=== PATIENT | male | born 1940 | race Caucasian/White ===

== ENCOUNTER 2020-03-25 14:04 | Outpatient (CLI) | payer MEDICARE, OTHER, SELFPAY ==
[2020-03-25 14:34] LABS: Basophils Percent Auto 0.4 % (0.2-1.2); Eosinophils Absolute Auto 0.4 K/mm3 (0-0.3); Eosinophils Percent Auto 4.9 % (0-4.4); Hematocrit 42.7 % (42.0-52.0); Hemoglobin 13.7 g/dL (14.0-18.0); Immature Granulocyte Absolute 0.02 K/mm3 (0.00-0.031); Immature Granulocyte Percent A 0.2 % (0-0.5); Lymphocytes Percent Auto 33.7 % (18.3-44.2); Mean Corpuscular HGB Conc 32.1 g/dl (32-36); Mean Corpuscular Hemoglobin 29.5 pg (26-34); Mean Corpuscular Volume 91.8 fl (80-100); Mean Platelet Volume 10.2 fl (7.4-10.4); Monocytes Absolute Auto 0.5 K/mm3 (0.1-0.6); Monocytes Percent Auto 6.6 % (2.6-8.5); Neutrophils Absolute Auto 4.4 K/mm3 (1.3-6.7); Neutrophils Percent Auto 54.2 % (45.5-73.1); Platelet Count Result 232 k/mm3 (150-375); Red Blood Count 4.65 M/mm3 (4.6-6.20); Red Cell Distribution Width 13.9 % (11.5-14.5)
[2020-03-25 14:45] LABS: Anion Gap 6 mmol/L (8-16); Blood Urea Nitrogen 19 mg/dL (9-20); Calcium 8.7 mg/dL (8.4-10.2); Carbon Dioxide 30 mmol/L (22-30); Chloride 107 mmol/L (98-107); Estimated Glomerular Filt Rate > 60; Glucose 158 mg/dL (75-110); Potassium 4.2 mmol/L (3.4-5.0); Sodium 143 mmol/L (137-145)
== END 2020-03-25 14:05 | disposition home or self-care (01) ==
PROVIDERS: PCP Family Medicine; Visit Provider Internal Medicine Cardiovascular Disease
DX: I48.91 Unspecified atrial fibrillation (principal)
CPT/HCPCS: 36415; 80048; 85025

== ENCOUNTER 2020-09-26 11:53 | Outpatient (CLI) | payer MEDICARE, OTHER, SELFPAY ==
[2020-09-26 12:52] LABS: Alanine Aminotransferase 20 U/L (4-50); Albumin Level 4.5 g/dL (3.5-5.1); Alkaline Phosphatase 97 U/L (38-126); Anion Gap 5 mmol/L (8-16); Aspartate Amino Transferase 24 U/L (17-59); Bilirubin,Total 0.6 mg/dL (0.2-1.3); Blood Urea Nitrogen 16 mg/dL (9-20); Calcium 9.2 mg/dL (8.4-10.2); Carbon Dioxide 32 mmol/L (22-30); Chloride 104 mmol/L (98-107); Cholesterol 156 mg/dL (0-200); Estimated Glomerular Filt Rate > 60; Glucose 140 mg/dL (75-110); HDL Direct 45 mg/dL; Potassium 4.1 mmol/L (3.4-5.0); Sodium 141 mmol/L (137-145); Triglycerides 126 mg/dL (<150)
[2020-09-26 13:02] LABS: LDL Cholesterol Direct 90 mg/dL
[2020-09-26 13:18] LABS: Prostate Specific Antigen 18.7 ng/mL (< OR = 4.0)
[2020-09-26 13:59] LABS: Folic Acid > 20.0 ng/mL (2.76->20)
== END 2020-09-26 11:54 | disposition home or self-care (01) ==
LOC: ANHLAB 12:05
PROVIDERS: PCP Physician Assistant; Visit Provider Physician Assistant
DX: Z12.5 Encounter for screening for malignant neoplasm of prostate (principal); E78.5 Hyperlipidemia, unspecified; I48.91 Unspecified atrial fibrillation; Z00.00 Encounter for general adult medical examination without abnormal findings
CPT/HCPCS: 36415; 80053; 80061; 82607; 82746; 84153; 84443; G0103

== ENCOUNTER 2020-10-11 09:32 | Outpatient (CLI) | payer MEDICARE, SELFPAY ==
[2020-10-11 10:19] LABS: Hemoglobin A1C 5.8 % (<5.7)
== END 2020-10-11 09:33 | disposition home or self-care (01) ==
LOC: ANHLAB 09:38
PROVIDERS: PCP Physician Assistant; Referring Provider Urology; Visit Provider Physician Assistant
DX: R97.20 Elevated prostate specific antigen [PSA] (principal)
CPT/HCPCS: 36415; 83036

== ENCOUNTER 2021-03-20 09:27 | Outpatient (CLI) | payer MEDICARE, SELFPAY ==
[2021-03-20 10:20] LABS: INR 3.6; Prothrombin Time 34.5 Seconds (11.1-14.7)
[2021-03-20 10:25] LABS: Alanine Aminotransferase 19 U/L (4-50); Albumin Level 4.1 g/dL (3.5-5.1); Alkaline Phosphatase 86 U/L (38-126); Anion Gap 4 mmol/L (8-16); Aspartate Amino Transferase 23 U/L (17-59); Bilirubin,Total 0.6 mg/dL (0.2-1.3); Blood Urea Nitrogen 16 mg/dL (9-20); Calcium 8.9 mg/dL (8.4-10.2); Carbon Dioxide 31 mmol/L (22-30); Chloride 107 mmol/L (98-107); Cholesterol 153 mg/dL (0-200); Estimated Glomerular Filt Rate > 60; Glucose 95 mg/dL (65-110); HDL Direct 38 mg/dL; Potassium 4.2 mmol/L (3.4-5.0); Sodium 142 mmol/L (137-145); Triglycerides 185 mg/dL (<150)
[2021-03-20 10:36] LABS: LDL Cholesterol Direct 87 mg/dL
[2021-03-20 11:32] LABS: Creatinine Urine 198.3 mg/dL
[2021-03-20 11:38] LABS: MALB Creatinine Ratio 4.9 mg/g (0-30); Microalbumin Urine Random 9.7 mg/L (0-16.7)
== END 2021-03-20 09:28 | disposition home or self-care (01) ==
LOC: ANHLAB 09:33
PROVIDERS: PCP Family Medicine; Visit Provider Physician Assistant
DX: E11.9 Type 2 diabetes mellitus without complications (principal); I10 Essential (primary) hypertension; E78.5 Hyperlipidemia, unspecified
CPT/HCPCS: 36415; 80053; 80061; 82043; 83036; 85610

== ENCOUNTER 2021-04-14 08:50 | Outpatient (RCR) | payer MEDICARE, SELFPAY ==
[2021-03-08 13:24] LABS: INR 4.1; Prothrombin Time 38.1 Seconds (11.1-14.7)
[2021-03-31 10:38] LABS: INR 2.2; Prothrombin Time 24.2 Seconds (11.1-14.7)
[2021-04-14 09:50] LABS: Prothrombin Time 22.5 Seconds (11.1-14.7)
== END 2021-06-06 23:59 | disposition home or self-care (01) ==
LOC: ANHLAB 08:50
PROVIDERS: PCP Physician Assistant; Visit Provider Internal Medicine Cardiovascular Disease
DX: Z51.81 Encounter for therapeutic drug level monitoring (principal); Z79.01 Long term (current) use of anticoagulants
CPT/HCPCS: 36415; 85610

== ENCOUNTER 2021-11-13 08:47 | Outpatient (RCR) | payer MEDICARE, SELFPAY ==
[2021-08-28 10:40] LABS: INR 1.8; Prothrombin Time 20.7 Seconds (11.1-14.7)
[2021-10-10 09:43] LABS: INR 2.3; Prothrombin Time 24.7 Seconds (11.1-14.7)
[2021-11-01 10:53] LABS: INR 1.7; Prothrombin Time 19.5 Seconds (11.1-14.7)
[2021-11-13 09:37] LABS: Prothrombin Time 22.3 Seconds (11.1-14.7)
== END 2021-11-26 23:59 | disposition home or self-care (01) ==
LOC: ANHLAB 08:47
PROVIDERS: PCP Family Medicine; Visit Provider Internal Medicine Cardiovascular Disease
DX: Z51.81 Encounter for therapeutic drug level monitoring (principal); Z79.01 Long term (current) use of anticoagulants
CPT/HCPCS: 36415; 85610

== ENCOUNTER 2022-02-19 09:34 | Outpatient (RCR) | payer MEDICARE, SELFPAY ==
[2021-12-12 09:47] LABS: INR 2.6; Prothrombin Time 27.1 Seconds (11.1-14.7)
[2022-01-09 12:25] LABS: INR 2.5; Prothrombin Time 26.1 Seconds (11.1-14.7)
[2022-02-05 08:54] LABS: INR 1.7; Prothrombin Time 19.4 Seconds (11.1-14.7)
[2022-02-19 10:08] LABS: INR 2.6; Prothrombin Time 27.3 Seconds (11.1-14.7)
== END 2022-03-12 23:59 | disposition home or self-care (01) ==
LOC: ANHLAB 09:34
PROVIDERS: PCP Family Medicine; Visit Provider Internal Medicine Cardiovascular Disease
DX: Z51.81 Encounter for therapeutic drug level monitoring (principal); Z79.01 Long term (current) use of anticoagulants
CPT/HCPCS: 36415; 85610

== ENCOUNTER 2022-03-01 06:36 | Outpatient (CLI) | payer MEDICARE, SELFPAY ==
--- NOTE | ~2022-03-01 | CT_ITS ---
EXAMINATION: CT abdomen pelvis w con DATE: 03/01/2022 07:19 INDICATION: Prostate cancer. TECHNIQUE: Computed tomography (CT) of the abdomen and pelvis was performed with 100 mL Omnipaque 350 intravenous contrast. Automated exposure control and iterative reconstruction technique were employe d. The dose-length product was 1603.39 mGy-cm. COMPARISON: None. FINDINGS: The visualized portions of the lung bases demonstrate mild atelectasis and chronic lung dis ease. There is marked elevation of right hemidiaphragm. Calcified left hilar lymph nodes are consiste nt with old granulomatous disease. No pleural effusion. The heart demonstrates biatrial enlargement. There are coronary artery calcifications. No pericardial effusion. There is a small sliding hiatal he rnia. The liver is normal. There is a gallstone in the gallbladder, which is normal in size. Calcific ations in the spleen are consistent with old granulomatous disease. The pancreas and adrenal glands a re normal. There is a right kidney are normal. There are cysts in left kidney measuring up to 18 mm. There are bilateral inguinal hernias containing fat. The prostate is moderately enlarged. There is a bladder diverticulum on the left. There is diverticulosis of the colon without evidence of diverticul itis. There are no dilated loops of bowel. The appendix is not visualized. There is a 17 x 12 mm subc utaneous mass in the anterior pelvis. There is a 19 x 13 mm subcutaneous mass in the anterior right a bdomen. There are no pathologically enlarged lymph nodes. There is severe thoracic and lumbar spondyl osis. IMPRESSION: 1. Two subcutaneous masses in the anterior body wall with the larger measuring 19 x 13 mm. These find ings may be benign or malignant. Ultrasound-guided core needle biopsy of at least one of the masses i s recommended. Reviewed, dictated and finalized at location A. IMPRESSION: 1. Two subcutaneous masses in the anterior body wall with the larger measuring 19 x 13 mm. These findings may be benign or malignant. Ultrasound-guided core n eedle biopsy of at least one of the masses is recommended.
--- NOTE | ~2022-03-01 | NM_ITS ---
EXAMINATION: NM bone scan whole body DATE: 03/01/2022 10:40 INDICATION: Prostate cancer. TECHNIQUE: 26.6 mCi Tc-99m HDP was administered intravenously. Delayed whole-body scintigrams were o btained. COMPARISON: CT abdomen and pelvis 03/01/2022 FINDINGS: There are bilateral total knee arthroplasties. There is increased activity in the shoulders , spine, and feet, likely osteoarthritis and spondylosis. IMPRESSION: 1. No evidence of metastatic disease. Reviewed, dictated and finalized at location A.
--- NOTE | ~2022-03-01 | XR_ITS ---
EXAMINATION: XR chest 2V DATE: 03/01/2022 07:01 INDICATION: Prostate cancer TECHNIQUE: PA and lateral views of the chest were obtained. COMPARISON: Chest radiograph dated 12/12/[address] dated 03/01/2022 FINDINGS: Eventration right hemidiaphragm. Subtle opacities in the bilateral lower lung zones. No pleural effus ion or pneumothorax. Borderline heart size is exaggerated by a prominent left paracardial fat pad. To rtuous thoracic aorta. Severe thoracic spondylosis with bridging osteophytes at multiple levels consi stent with diffuse idiopathic skeletal hyperostosis (DISH). IMPRESSION: 1. Mild opacities in the bilateral lower lung zones which could represent atelectasis, pulmonary damaso a, pneumonia or some combination thereof. Reviewed, dictated and finalized at location B. IMPRESSION: 1. Mild opacities in the bilateral lower lung zones which could represent atele ctasis, pulmonary edema, pneumonia or some combination thereof.
[2022-03-01 07:10] LABS: Estimated Glomerular Filt Rate > 60
== END 2022-03-01 06:37 | disposition home or self-care (01) ==
PROVIDERS: PCP Family Medicine; Visit Provider Urology
DX: C61 Malignant neoplasm of prostate (principal); R91.8 Other nonspecific abnormal finding of lung field
CPT/HCPCS: 71046; 74177; 78306; A9561; Q9967

== ENCOUNTER 2022-03-16 09:01 | Outpatient (CLI) | payer MEDICARE, SELFPAY ==
--- NOTE | ~2022-03-16 | US_ITS ---
EXAMINATION: US biopsy abd retroperitoneal DATE: 03/16/2022 10:22 INDICATION: Soft tissue nodules in the anterior abdominal wall TECHNIQUE: The procedure including the risks and benefits was discussed with the patient. Risks discu ssed included bleeding and infection. The patient understood the risks and agreed to proceed. Attenti on was first turned to the more cephalad nodule in the right lower quadrant. The skin overlying the n odule was prepped and draped in usual sterile fashion. Anesthetic was administered with 1% lidocaine subcutaneously. An 18 gauge core biopsy needle was then advanced into the lesion utilizing continuou s ultrasound observation. 4 core biopsy specimens were obtained. Attention was then turned to the mor e caudal nodule in the midline suprapubic region. The skin overlying the nodule was prepped and drape d in usual sterile fashion. Anesthetic was administered with 1% lidocaine subcutaneously. An 18 gauge core biopsy needle was then advanced into the lesion utilizing continuous ultrasound observation. 4 core biopsy specimens were obtained. Sterile bandages were applied. There were no immediate complicat ions. FINDINGS: Ultrasound images demonstrate biopsy needles advanced first into a 2.0 x 1.3 x 1.1 cm hypoe choic nodule at the right lower quadrant anterior abdominal wall and subsequently into the 1.6 x 0.8 cm and 27-year-old suprapubic nodule. Stenting noted is a 2.3 x 2.6 x 0.7 cm nodule in the more cepha lad right anterior abdominal wall which appears more isoechoic with the surrounding fat which is with out evident soft tissue correlate on the prior CT in this most likely represents a lipoma. IMPRESSION: 1. Successful CT-guided biopsy of a 2.0 x 1.3 x 1.1 cm subcutaneous nodule in the anterior right lowe r quadrant. 2. Successful CT-guided biopsy of a 0.6 x 0.8 cm subcutaneous nodule in the midline suprapubic region . Reviewed, dictated and finalized at location A. IMPRESSION: 1. Successful CT-guided biopsy of a 2.0 x 1.3 x 1.1 cm subcutaneous nodule in t he anterior right lower quadrant. 2. Successful CT-guided biopsy of a 0.6 x 0.8 cm subcutaneous nodule in the mid line suprapubic region.
== END 2022-03-16 09:02 | disposition home or self-care (01) ==
PROVIDERS: PCP Family Medicine; Visit Provider Urology
DX: C61 Malignant neoplasm of prostate (principal); C43.59 Malignant melanoma of other part of trunk
CPT/HCPCS: 49180; 76942; 88305; 88342

== ENCOUNTER 2022-04-16 11:38 | Outpatient (CLI) | payer MEDICARE, SELFPAY ==
--- NOTE | ~2022-04-16 | XR_ITS ---
XR chest 2V DATE: 04/16/2022 14:06 INDICATION: Malignant prostate neoplasm TECHNIQUE: 2 views COMPARISON: 03/01/2022 PA and lateral chest FINDINGS: Elevated right diaphragm due to eventration is again noted. Mild right basilar atelectasis. The lungs otherwise appear clear of infiltrate or consolidation. No pleural effusion or pulmonary va scular congestion or pneumothorax is detected. Heart size appears within normal limits. Is aortic calcification, ectasia and unfolding. Mild dextroscoliosis and prominent degenerative spurring of the thoracic spine. No apparent osteolyti c or osteoblastic lesions are noted. IMPRESSION: Elevated right diaphragm and mild right basilar atelectasis Reviewed, dictated and finalized at location B. 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
--- NOTE | 2022-04-16 13:12 | ECG_ITS ---
Measurements Intervals [place] Rate: 88 P: MT: 0 QRS: 21 QRSD: 99 T: 1 QT: 370 QTc: 450 Interpretive Statements SINUS OR ECTOPIC ATRIAL RHYTHM WITH SINUS ARRHYTHMIA ATRIAL PREMATURE COMPLEXES LOW QRS VOLTAGE IN PRECORDIAL LEADS BASELINE ARTIFACT- I, II, III, AVR, AVL, AVF, V1-V3 BORDERLINE ECG NO PREVIOUS ECG AVAILABLE FOR COMPARISON Electronically Signed On 04-16-2022 17:41:21 FIELD COORDINATOR by Antoni Thompson D.O.
[2022-04-16 15:26] LABS: Appearance Urine Clear (Clear); Basophils Absolute Auto 0.1 K/mm3 (0.0-0.1); Basophils Percent Auto 0.5 % (0.2-1.2); Bilirubin Urine Negative (Negative); Blood Urine Negative (Negative); Color Urine Yellow (Yellow); Eosinophils Absolute Auto 0.4 K/mm3 (0-0.3); Eosinophils Percent Auto 4.6 % (0-4.4); Glucose Urine UA Negative (Negative); Hematocrit 47.8 % (42.0-52.0); Hemoglobin 15.2 g/dL (14.0-18.0); Immature Granulocyte Absolute 0.03 K/mm3 (0.00-0.031); Immature Granulocyte Percent A 0.3 % (0-0.5); Ketones Urine Negative (Negative); Leukocyte Esterase Ur Negative LEU/UL (Negative); Lymphocytes Absolute Auto 3.11 K/mm3 (0.9-3.2); Mean Corpuscular HGB Conc 31.8 g/dl (32-36); Mean Corpuscular Hemoglobin 29.1 pg (26-34); Mean Corpuscular Volume 91.4 fl (80-100); Mean Platelet Volume 10.5 fl (7.4-10.4); Monocytes Absolute Auto 0.5 K/mm3 (0.1-0.6); Monocytes Percent Auto 5.6 % (2.6-8.5); Nitrate Urine Negative (Negative); Platelet Count Result 281 k/mm3 (150-375); Protein Urine Negative (Negative); Red Blood Count 5.23 M/mm3 (4.6-6.20); Specific Grav Ur 1.025 (1.001-1.035); White Blood Count 9.2 K/mm3 (4.5-10.0)
[2022-04-16 15:32] LABS: Add Urine Microscopic? NO
[2022-04-16 15:37] LABS: INR 1.1; Partial Thromboplastin Time 31.5 SECONDS (22.3-36.8); Prothrombin Time 13.9 Seconds (11.1-14.7)
== END 2022-04-16 11:39 | disposition home or self-care (01) ==
LOC: ANHSURGERY 11:42
PROVIDERS: PCP Family Medicine; Visit Provider Urology
DX: C61 Malignant neoplasm of prostate (principal); I48.0 Paroxysmal atrial fibrillation; Z01.818 Encounter for other preprocedural examination; R94.31 Abnormal electrocardiogram [ECG] [EKG]
CPT/HCPCS: 36415; 71046; 81003; 85025; 85610; 85730; 86850; 86900; 86901; 93005

== ENCOUNTER 2022-04-24 09:12 | Outpatient (CLI) | payer MEDICARE, SELFPAY ==
--- NOTE | ~2022-04-24 | PE_ITS ---
EXAMINATION: PET skull to mid thigh DATE: 04/24/2022 11:03 INDICATION: Melanoma of overlapping sites TECHNIQUE: Blood glucose level was 102 mg/dL. 9.256 mCi of 18-fluorodeoxyglucose (18-FDG) was adminis tered i.v. Low dose computed tomography (CT) images were acquired from the vertex to the distal thigh s for attenuation correction and anatomic localization. Positron emission tomography (PET) images wer e acquired in the same distribution beginning 60 minutes after injection. Images including fused PET/ CT images were reconstructed in axial, coronal, and sagittal planes. Automated exposure control techn Muzzley was employed. The dose-length product was 999.80mGy-cm. COMPARISON: CT abdomen pelvis dated 03/01/2022 FINDINGS: Head/neck: There is symmetric increased activity in the oral cavity, nares and ocular muscles without CT correla te, likely physiologic. No pathologically enlarged cervical lymphadenopathy or suspicious foci of inc reased FDG uptake in the visualized head or neck. Chest: Unchanged elevation of the right hemidiaphragm with stable appearance of chronic unilateral periphera l and basilar predominant reticular and groundglass opacities in the right lung consistent with chron ic atelectasis/scarring. No pneumonia, pulmonary edema, suspicious pulmonary nodules or pleural effus ion. Cardiomegaly with atherosclerotic coronary artery calcification. No pericardial effusion. Thorac ic aorta is normal in caliber. Small sliding-type hiatal hernia. No pathologically enlarged or FDG av id thoracic lymphadenopathy. Abdomen/pelvis/proximal thighs: Physiologic renal accumulation and excretion of FDG activity in the kidneys, bladder and along portio ns of ureters. Normal degree and heterogenous pattern of increased uptake throughout the liver withou t radiologic correlate or dominant FDG avid lesion. Calcified gallstone in the dependent aspect of th e otherwise normal gallbladder. The pancreas, spleen and bilateral adrenal glands are normal. Mild up take scattered throughout the bowels without radiologic correlate, also likely physiologic. There are few scattered colonic diverticula without adjacent inflammatory change to suggest diverticulitis. No rmal appendix. No other abnormal foci of increased FDG uptake or pathologically enlarged lymphadenopa thy in the abdomen, pelvis or proximal thighs. Musculoskeletal: There is increased FDG uptake with maximal SUV of 16.8 at the more cephalad and lateral of the biopsi ed nodule at the anterior right pelvis which measures 2.2 x 1.3 cm. The more caudal biopsied suprapub ic nodule measures 2.1 x 0.9 cm with maximal SUV of 18.3. There is a small focus of FDG uptake with m aximal velocity of 11.1 along the caudal left latissimus dorsi muscle overlying the posterior left 11 th rib which is without correlate on the current CT images but with a subtle approximately 10 x 7 mm nodule on the earlier CT. Indeterminate approximately 2.5 region of mild increased uptake with debo l SUV of 4.7 at the left paraspinal musculature at the level of the L4 transverse processes is withou t definitive correlate on the current prior imaging. Mild nonfocal increased muscular uptake along th e dorsal aspect of the right hand and wrist, at the bilateral thenar eminences in the hands and along the proximal right biceps femoris muscle belly, all are without evident radiologic correlate. There is fatty atrophy of some of the musculature in the posterior components of the bilateral distal thigh s which may be related to the severe lumbar spondylosis. There are postoperative changes with mild li near scarring in the subcutaneous tissues posterior to the lower lumbar spine. Relatively symmetric m ild likely synovial uptake at the bilateral acromioclavicular and glenohumeral joints. IMPRESSION: 1. Prominent increased FDG uptake associated with the 2 biopsied subcutaneous nodules at the anterior righ
[2022-04-24 09:41] LABS: Glucose Point of Care 102 mg/dl (65-105)
== END 2022-04-24 09:13 | disposition home or self-care (01) ==
PROVIDERS: PCP Family Medicine; Visit Provider Internal Medicine Hematology & Oncology
DX: C43.8 Malignant melanoma of overlapping sites of skin (principal); M62.9 Disorder of muscle, unspecified
CPT/HCPCS: 78815; A9552

== ENCOUNTER 2022-04-26 00:59 | Day surgery (SDC) | payer MEDICARE, SELFPAY ==
[2022-04-16 11:49] VITALS: BMI 37.9
--- NOTE | 2022-04-16 12:29 | PC.NURSE ---
Report to the Outpatient Waiting Room, entrance under the green pavilion located off [facility], at time __0600 on date ___04/26/22____. Planned Procedure Time: __729 . Time changes happen often and if your time is changed the preop area will call you the afternoon before. - You and your visitor will be asked to self-screen and do not enter if you have any COVID symptoms. - Only one visitor is requested with a max of two and NO children visitors are allowed at this time. - The patient visitor may be requested to leave or wait in car when not with patient due to distancing restrictions. - A mask is optional within the hospital. Patients may have clear liquids (water, carbonated beverages, clear teas, apple juice) until 3 hours prior to surgery with a maximum of 20 ounces. - No food from midnight until time of surgery - Infants may have breast milk until 4 hours before surgery, infant formula 6 hours prior to surgery. - Children will be allowed to drink immediately following surgery. If applicable, please bring a bottle or sippy cup to assist with drinking. Juice, water, soda, and popsicles are readily available. For infants on formula, please bring formula the day of surgery. Pacifiers are allowed. Take the following medications with a SIP of water the morning of surgery: ___ATENOLOL Medications to discontinue per physician __PT STATES STOPPED ON HIS OWN 04/09/22 WARFARIN,FISH OIL. ALL VITAMINS AND SUPPLEMENTS 3 DAYS PRE OP Date to take last dose__04/22/22 Please no make-up, nail kyrgyz, hairspray, perfume, deodorant, or body powder the day of surgery. No jewelry (including any body piercings) or valuables the day of surgery, leave them at home. Please take a shower or bath the night before, or the morning of, surgery with an antibacterial soap. Wear comfortable, loose fitting clothing. Children are encouraged to wear pajamas. - Jewelry must be removed prior to entering the operating room. Rings and piercings that are not removed may be cut off. - The hospital will not accept responsibility for valuables. - Please leave all valuables, including medications, at home the day of surgery. If you are going home after surgery, a licensed delivery driver/supervisor must drive you home. - NO public transportation without another adult if you receive anesthesia. - We recommend that an adult stay with you for 24 hours following discharge. - We also recommend that you do not drive, make important decision, drink alcoholic beverages, or take any drugs that were not prescribed by your health care provider for at least 24 hours after your discharge time. BOWEL PREP PER DR MADRIGAL Follow any additional instructions given to you from your surgeon. If you or anyone in your household have experienced Covid symptoms in the past week, please notify your surgeon or the nurse liaison at the phone number below for possible testing. VERBAL AND WRITTEN instructions given to ___PATIENT and asked if any additional questions and then verbalized understanding. Patient advised to call surgeon office or pre surgery nurse liaison [phone] if any additional questions.
[2022-04-16 12:55] VITALS: BP 121/81; PULSE 93; RESP 18; TEMP 36.7; O2SAT 97
--- NOTE | 2022-04-23 07:48 | PM.IMHP ---
H&P: HPI History of Present Illness Date/Time: 04/23/22 07:48 Chief Complaint: Prostate cancer Narrative: 81-year-old gentleman recently underwent evaluation for a PSA of 33. Prostate ultrasound and biopsy revealed a 50.5 g prostate with 10 of 12 cores showing Fantasma adenocarcinoma 6, [address] scan abdomen pelvis, bone scan and chest x-ray showed no evidence of metastatic prostate cancer. There were 2 abdominal wall lesions in subsequent percutaneous biopsy are consistent with melanoma. Patient is seeing medical oncology for that. After discussion of options for his prostate cancer including radical prostatectomy, radiation therapy in various forms, active surveillance and androgen deprivation he has elected for a radical prostatectomy. He is aware of the risk of this procedure including, but not limited to, adverse cardiopulmonary events, need for additional therapy, rectal injury, urinary incontinence and erectile dysfunction. Review of Systems Cardiovascular: Cardiovascular: Denies chest pain, Denies lightheadedness, Denies palpitations and Denies dyspnea Respiratory: Respiratory: Denies dyspnea Gastrointestinal: Gastrointestinal: Denies diarrhea, Denies nausea and Denies vomiting Genitourinary: Genitourinary: Denies hematuria and Denies dysuria Endocrine: Endocrine: Denies palpitations [facility] Past Medical History Medical History (Updated 04/11/22 @ 10:00 by Cara Warren MD) Degenerative disc disease, lumbar GERD (gastroesophageal reflux disease) Hypercholesterolemia Memory loss Paroxysmal atrial fibrillation Prostate cancer Venous stasis dermatitis of right lower extremity Venous stasis syndrome Surgical History Surgical History History of back surgery History of eye surgery 08/10/17 - Right eye History of left knee surgery around 2004 History of right knee surgery around 2008 Family History Family History Mother Diabetes mellitus Father Family history of cardiovascular disease Malignant neoplasm of prostate Social History Social History (Updated 04/11/22 @ 09:07 by Jen Linton [facility]) Smoking packs per day: 0.5 Smoking cigarettes per day: 10.0 Years smoked: 6 Smoking pack-years: 3.00 Smoking status: Former smoker Tobacco type: cigarettes Second hand tobacco smoke exposure: No Smoking end date: 05/20/69 Alcohol intake: current Drinks per week: 1 Alcohol use details: 1 beer or mixed drink rarely Substance use: never Substance use type: does not use Lack of Transportation: No Lack of Food: Never True Current Housing: I Have Housing Concerned About Future Housing: No Difficulty Paying Gas/Electric Bills: No Difficulty Paying for Meds: No Currently Unemployed: No Education: High School Diploma/GED Difficulty w/ Childcare or Family Care: No Gender identity (if verbalized by the patient): Male Sexual Orientation (if Verbalized by the Patient): Straight or Heterosexual Spiritual care concerns: No Agree to blood products: Yes Meds Home Medications and Allergies Home Medications Medication Instructions Recorded Confirmed Type atorvastatin 40 mg tablet 40 mg PO DAILY 05/01/19 04/16/22 History omega 6-tef-nfz-fish oil 1,200 mg 1 cap PO BID 12/31/19 04/16/22 History (144 mg-216 mg) capsule (Fish Oil) warfarin 5 mg tablet 5 mg PO DAILY #1 tablet 03/20/21 04/16/22 Rx omeprazole 20 mg capsule,delayed See Rx Instructions .Route 10/20/21 04/16/22 Rx release .COMPLEX #90 caps tamsulosin 0.4 mg capsule See Rx Instructions .Route 03/07/22 04/16/22 Rx .COMPLEX #90 caps diclofenac sodium 75 mg 75 mg PO DAILY 04/16/22 04/16/22 History tablet,delayed release multivitamin 1 tablet PO DAILY 04/16/22 04/16/22 History atenolol 50 mg tablet 50 mg PO DAILY 04/17/22 04/17/22 History Allergies Allergy/AdvReac Ty
--- NOTE | 2022-04-25 11:36 | WPDANESEPPF ---
Anes - Initial Pre Proc Eval Procedure: Operation Date: 04/26/22 07:30 Proposed Procedures p Robotic Assisted Laparoscopic Prostatectomy with Bilateral Pelvic Lymph Node Dissection - Kyrie Chavez MD Date/Time: 04/25/22 11:36 Surgeon: Kyrie Chavez MD Pre Op Diagnosis: Prostate Ca Patient Data Age: 81 Gender: M Height: 1.7 m Weight: 109.8 kg Last Vital Signs Temp 36.7 C 04/16/22 12:55 Pulse 93 04/16/22 12:55 Resp 18 04/16/22 12:55 BP 121/81 04/16/22 12:55 Pulse Ox 97 04/16/22 12:55 O2 Del Method Room Air 04/16/22 12:55 Allergies Allergy/AdvReac Type Severity Reaction Status Date / Time No Known Allergies Allergy Verified 04/26/22 06:11 Home Medications Medication Instructions Recorded Confirmed Type atorvastatin 40 mg tablet 40 mg PO DAILY 05/01/19 04/26/22 History omega 1-ytd-jfd-fish oil 1,200 mg 1 cap PO BID 12/31/19 04/26/22 History (144 mg-216 mg) capsule (Fish Oil) warfarin 5 mg tablet 5 mg PO DAILY #1 tablet 03/20/21 04/26/22 Rx omeprazole 20 mg capsule,delayed See Rx Instructions .Route 10/20/21 04/26/22 Rx release .COMPLEX #90 caps tamsulosin 0.4 mg capsule See Rx Instructions .Route 03/07/22 04/26/22 Rx .COMPLEX #90 caps diclofenac sodium 75 mg 75 mg PO DAILY 04/16/22 04/26/22 History tablet,delayed release multivitamin 1 tablet PO DAILY 04/16/22 04/26/22 History atenolol 50 mg tablet 50 mg PO DAILY 04/17/22 04/26/22 History Patient hx anesthesia problems: none Family hx anesthesia problems: none Results Review: All pre-operative results and documents have been reviewed as part of the pre-operative evaluation. [facility] Past Medical History Medical History (Updated 04/25/22 @ 11:36 by Jose Tyler DO) Degenerative disc disease, lumbar GERD (gastroesophageal reflux disease) Hypercholesterolemia Memory loss Paroxysmal atrial fibrillation Primary hypertension Prostate cancer Venous stasis dermatitis of right lower extremity Venous stasis syndrome Surgical History Surgical History History of back surgery History of eye surgery 08/10/17 - Right eye History of left knee surgery around 2004 History of right knee surgery around 2008 Family History Family History Mother Diabetes mellitus Father Family history of cardiovascular disease Malignant neoplasm of prostate Social History Social History (Updated 04/11/22 @ 09:07 by Jen Linton [facility]) Smoking packs per day: 0.5 Smoking cigarettes per day: 10.0 Years smoked: 6 Smoking pack-years: 3.00 Smoking status: Former smoker Tobacco type: cigarettes Second hand tobacco smoke exposure: No Smoking end date: 05/20/69 Alcohol intake: current Drinks per week: 1 Alcohol use details: 1 beer or mixed drink rarely Substance use: never Substance use type: does not use Lack of Transportation: No Lack of Food: Never True Current Housing: I Have Housing Concerned About Future Housing: No Difficulty Paying Gas/Electric Bills: No Difficulty Paying for Meds: No Currently Unemployed: No Education: High School Diploma/GED Difficulty w/ Childcare or Family Care: No Living arrangements: with family Gender identity (if verbalized by the patient): Male Sexual Orientation (if Verbalized by the Patient): Straight or Heterosexual Spiritual care concerns: No Agree to blood products: Yes Anes - Eval Final PreProcedure Day of Procedure 04/25/22 11:36 Patient weight: obese Heart: regular rate and rhythm Lungs: clear to auscultation Airway: Mallampati scale class II Neurological: alert and oriented Last oral intake: >/= 8 hours ASA classification: III Emergent: no Anesthetic plan: proceed Anesthesia type and monitoring: general ETT and standard monitoring Results Review: All pre-operative results and documents
[2022-04-26] VITALS (23 sets, daily range): BP systolic 114–145; BP diastolic 59–107; PULSE 83–118; RESP 10–20; TEMP 36.1–36.7; O2SAT 87–100
--- NOTE | 2022-04-26 06:47 | WPDHPUPDATE1 ---
History and Physical Update Update Date/Time: 04/26/22 06:47 History and Physical has been reviewed, including an updated exam of the patient. There are NO changes in the patient's condition. Risks, benefits, and alternatives have been discussed and questions answered. Patient agrees to proceed with procedure.
[2022-04-26] MEDS: LACTATED RINGERS 1,000 ML 30 ML IV CONT ×2 (07:02→11:34)
[2022-04-26] MEDS: ceFAZolin 2 GM/D5W 50 ML 2 GM/50 ML BAG IVPB (07:26)
--- NOTE | 2022-04-26 10:58 | W.PM.PROC2 ---
Procedure Note - Detailed Date of Procedure 04/26/22 Pre-op Diagnosis Prostate Ca Post-op Diagnosis Same Procedure Performed robotic assisted laparoscopic radical prostatectomy with bilateral pelvic lymphadenectomy Surgeon Kyrie Chavez MD Anesthesia General Description of Procedure The patient was brought to the operative suite, where he was prepped and draped in routine sterile fashion while in a dorsal lithotomy, deep Trendelenburg position. A supraumbilical 10 mm trocar was placed after insufflation of the abdomen with a Veress needle. Three robotic ports were then placed under direct vision. Two of these were placed in the right lower quadrant - 10 cm and 20 cm lateral to, and in line with, the umbilicus. A third robotic trocar was placed 10 cm to the left of the umbilicus, and 20 cm to the left of the umbilicus, a 12 mm standard laparoscopic trocar was placed to be used as an assistant professor of biochemistry port. Lastly, a 5 mm trocar was placed in the left upper quadrant midway between the umbilicus and the left robotic trocar. Attention was then turned to the prostatectomy. I opted for a posterior approach in this patient. An incision was made in the parietal peritoneum along the posterior bladder/posterior prostate about 2 cm above the reflection of the peritoneum over the anterior rectum. The seminal vesicles and vas deferens were immediately identified. Dissection is undertaken in a fashion so as to avoid electrocautery as much as possible, particularly near the tips of the seminal vesicles. Dissection was also carried out in the midline so as to avoid any encounters with the ureters. The vas deferens and the seminal vesicles were dissected in their entirety to the base of the prostate. The plane anterior to Denoviller's fascia, anterior to the rectum and posterior to the prostate was then developed. I then dropped the bladder by incising the anterior parietal peritoneum just lateral to the median umbilical ligaments bilaterally. The bladder was dropped from the anterior abdominal and pelvic wall. The endopelvic fascia was identified and incised bilaterally, allowing for dissection of the posterior-lateral aspect of the prostate. The puboprostatic ligaments were transected near their origin from the posterior pubic ramus. This posterior lateral dissection of the prostate is also undertaken in a fashion so as to avoid electrocautery as much as possible. The dorsal vein of the penis is then secured with an 0 -Vicryl ligature. Attention is then turned to the bladder neck. The anterior bladder neck is incised at the vesico-prostatic junction. The previously placed urethral catheter was drawn through the urethrotomy. A very small bladder neck was maintained throughout the remainder of this dissection. The posterior bladder neck was incised in a fashion so as to avoid any injury to the ureteral orifices. Again, the small aperture of the bladder neck was maintained. The previously dissected vas deferens and the seminal vesicles were brought through the posterior bladder neck incision. The lateral prostatic pedicles were then carefully dissected from the lateral aspect of the prostate bilaterally. The prostatic pedicles were secured with Weck clips and transected. The neurovascular bundles were carefully dissected from the posterior-lateral aspect of the prostate. The dorsal vein of the penis was incised with electrocautery. Using cold scissors, the urethra was incised. After withdrawing the previously placed urethral catheter, the posterior urethra was sharply incised, as was the rectalurethralis muscle. Attention was then turned to an extended bilateral pelvic lymphadenectomy. The limits of this dissection were similar bilaterally. Specifically, the limits were the bifurcation of the common iliac vein proximally, the inguinal ligament distally, the obturator nerve posteriorly and the anterior aspect to the external iliac artery laterally. This dissection
[2022-04-26] MEDS: fentaNYL CITRATE INJ (*CRX) 100 MCG/2 ML VIAL 25 MCG IV PUSH ×8 (11:08→11:53)
--- NOTE | 2022-04-26 11:50 | SUR.PHASEI ---
1150- Call to Dr. Tyler for patient's uncontrolled pain level and elevated heart rate in AFib rhythm. Patient into recovery room in AFib with heart rate in 100's. Notified Dr. Tyler patient has received 175MCG fentanyl IVP and remains in severe pain with HR into 130's AFib to low 100's. Per Dr. Tyler place orders for Dilaudid 0.25MG IVP every 5 minutes for a maximum dosing of 1MG. If patient's HR remains in 100's once pain more controlled call for additional orders for elevated HR.
[2022-04-26] MEDS: HYDROmorphone HCL INJ (*CRX) 1 MG/ML SYR 0.25 MG IV PUSH (11:56)
[2022-04-26] MEDS: METOPROLOL TARTRATE INJ 5 MG/5 ML VIAL IV PUSH (12:07)
--- NOTE | 2022-04-26 12:45 | SUR.PHASEI ---
1245- Patient ready for transfer to floor, all criteria met- no beds available at this time. Will be transferred to outpatient recovery for holding until room becomes available for patient.
--- NOTE | 2022-04-26 15:07 | ADMGEN ---
This patient, Justice Navarro, was admitted to Medical Room 340-01. Patient/family oriented to hospital policies and general routines including ID bracelet, bed and alarms, visiting hours, pain management, procedures, bathroom and other care routines, personal items, smoking policy, room service/diet, and visiting hours. Information on how to activate the Rapid Response Team has been discussed. Patient/Family are encouraged to report perceived risks to care and to ask questions if they do not understand what they are told or what they should do.
[2022-04-26] MEDS: LACTATED RINGERS 1,000 ML 125 ML IV CONT (15:31)
[2022-04-26 16:42] LABS: Partial Thromboplastin Time 28.2 SECONDS (22.3-36.8)
[2022-04-27 00:16] VITALS: BP 120/78; PULSE 94; RESP 18; TEMP 36.7; O2SAT 98
[2022-04-27] MEDS: LACTATED RINGERS 1,000 ML 125 ML IV CONT (00:24)
[2022-04-27 04:14] VITALS: BP 119/74; PULSE 110; RESP 18; TEMP 36.7; O2SAT 95
[2022-04-27 06:18] LABS: Hematocrit 39.9 % (42.0-52.0); Hemoglobin 12.8 g/dL (14.0-18.0)
[2022-04-27 06:28] LABS: Anion Gap 6 mmol/L (8-16); Blood Urea Nitrogen 18 mg/dL (9-20); Calcium 7.9 mg/dL (8.4-10.2); Carbon Dioxide 25 mmol/L (22-30); Chloride 106 mmol/L (98-107); Estimated CRCL calculation 72 ml/min; Estimated Glomerular Filt Rate > 60; Glucose 103 mg/dL (65-110); Sodium 137 mmol/L (137-145)
--- NOTE | 2022-04-27 07:21 | WPDUROPN2 ---
Progress Note: A&P Assessment and Plan (1) Prostate cancer: Code(s): C61 - Malignant neoplasm of prostate Status: Acute Assessment and Plan: Doing well POD 1. Increase diet and activity. Anticipate discharge after lunch. Subjective Subjective Date/Time Seen: 04/27/22 07:21 Comfortable/minimal pain and no n/v. Slept well. Exam Const: General: no acute distress Resp: Effort & Inspection: normal respiratory effort GI: Inspection: non-distended GI Palp: No abdominal tenderness and No Guarding due to palpation present (GI) Auscultation: normal bowel sounds Urinary Catheter: Urinary Catheter: patent and draining and urine clear Objective Data Vital Signs Vital Signs: Vital Signs - 24 hr 04/26/22 10:54 04/26/22 10:57 04/26/22 11:10 Temperature 97.6 F Pulse Rate 109 H 110 H 106 H Respiratory Rate 10 L 12 18 Blood Pressure 114/85 122/95 H 137/95 H Pulse Oximetry 98 100 100 Oxygen Delivery Simple Face Mask Simple Face Mask Simple Face Mask Oxygen Flow Rate 8 8 8 04/26/22 11:20 04/26/22 11:30 04/26/22 11:45 Temperature Pulse Rate 109 H 116 H 117 H Respiratory Rate 12 12 20 Blood Pressure 129/84 130/87 143/83 H Pulse Oximetry 100 94 94 Oxygen Delivery Simple Face Mask Room Air Nasal Cannula Oxygen Flow Rate 8 2 04/26/22 11:55 04/26/22 12:07 04/26/22 12:10 Temperature Pulse Rate 114 H 118 H 102 H Respiratory Rate 20 12 Blood Pressure 128/93 H 117/70 Pulse Oximetry 97 96 Oxygen Delivery Nasal Cannula Nasal Cannula Oxygen Flow Rate 2 2 04/26/22 12:25 04/26/22 12:40 04/26/22 13:03 Temperature 97.0 F L Pulse Rate 99 103 H 98 Respiratory Rate 15 14 Blood Pressure 115/77 119/71 121/76 Pulse Oximetry 99 100 Oxygen Delivery Nasal Cannula Nasal Cannula Nasal Cannula Oxygen Flow Rate 2 2 2 04/26/22 13:30 04/26/22 14:00 04/26/22 14:30 Temperature Pulse Rate 101 H 98 101 H Respiratory Rate 14 Blood Pressure 114/84 123/75 131/95 H Pulse Oximetry 100 Oxygen Delivery Room Air Room Air Room Air Oxygen Flow Rate 04/26/22 15:10 04/26/22 15:25 04/26/22 16:00 Temperature 97.1 F L 97.2 F L Pulse Rate 107 H 106 H 102 H Respiratory Rate 18 18 18 Blood Pressure 143/107 H 139/92 H Pulse Oximetry 100 100 87 L Oxygen Delivery Nasal Cannula Oxygen Flow Rate 2 04/26/22 15:55 04/26/22 16:55 04/26/22 20:45 Temperature 97.2 F L 97.4 F L Pulse Rate 102 H 104 H 104 H Respiratory Rate 18 16 16 Blood Pressure 135/84 138/84 Pulse Oximetry 100 100 100 Oxygen Delivery Nasal Cannula Oxygen Flow Rate 1 04/26/22 21:05 04/27/22 00:16 04/27/22 04:14 Temperature 98.1 F 98.1 F 98.1 F Pulse Rate 83 94 110 H Respiratory Rate 18 18 18 Blood Pressure 115/59 L 120/78 119/74 Pulse Oximetry 98 98 95 Oxygen Delivery Oxygen Flow Rate Intake/Output Intake/Output: Intake & Output 04/24/22 04/25/22 04/26/22 04/27/22 23:59 23:59 23:59 23:59 Intake Total 1790 350 Output Total 100 650 Balance 1690 -300 Meds/Results Medications: Active Medications Generic Name Dose Route Start Last Admin Trade Name Freq PRN Reason Stop Dose Admin Atenolol 50 mg 04/27/22 09:00 Atenolol 50 Mg Tablet PO DAILY GUILLERMO Atorvastatin Calcium 40 mg 04/27/22 09:00 Atorvastatin 40 Mg Tablet PO DAILY GUILLERMO Hyoscyamine 0.125 mg 04/26/22 14:56 Hyoscyamine Sulfate 0.125 Mg Tablet SUBLINGUAL Q4H PRN Bladder Spasm Lactated Ringer's 1,000 mls @ 125 mls/hr 04/26/22 14:56 04/27/22 00:24 Lr - Lactated Ringers Iv IV CONT 125 mls/hr .Q8H GUILLERMO Administration Acetaminophen 1,000 mg in 100 mls @ 400 mls/hr 04/26/22 18:00 04/27/22 05:24 Ofirmev 1,000 Mg Ivpb IVPB 04/27/22 17:59 400 mls/hr Q6HR GUILLERMO Administration Ketorolac Tromethamine 15 mg 04/26/22 14:56 Ketorolac 15 Mg/Ml Vial (*Bkc) IV PUSH 04/27/22 14:55 Q6H PRN Pain Rated 4-6 Levofloxacin 500 mg 04/27/22 09:00 Levofloxacin 500 M
[2022-04-27 08:29] VITALS: PULSE 101
[2022-04-27] MEDS: PANTOPRAZOLE 40 MG TABLET PO (08:29)
[2022-04-27] MEDS: levoFLOXacin 500 MG TABLET PO (08:29)
[2022-04-27] MEDS: atenoloL 50 MG TABLET PO (08:29)
[2022-04-27] MEDS: ATORVASTATIN 40 MG TABLET PO (08:30)
--- NOTE | 2022-04-27 10:35 | WPDANESPN ---
Anes - Prog Note Post-Op Date/Time: 04/27/22 09:44 Cardiovascular status: normal Respiratory status: normal Airway patency: baseline Mental status: baseline Post-Op hydration status: normal Vital Signs: Last Vital Signs Temp 98.1 F 04/27/22 04:14 Pulse 101 H 04/27/22 08:29 Resp 18 04/27/22 04:14 BP 119/74 04/27/22 04:14 Pulse Ox 95 04/27/22 04:14 O2 Del Method Nasal Cannula 04/26/22 20:45 O2 Flow Rate 1 04/26/22 20:45 Pain Score (VAS): 2 I/O: Intake & Output 04/26/22 04/27/22 04/27/22 23:59 07:59 15:59 Intake Total 1340 350 Output Total 650 Balance 1340 -300 Laboratory Tests 04/27/22 05:34 04/27/22 05:34 04/26/22 04/27/22 04/27/22 16:19 05:34 05:34 Hgb 12.8 L Hct 39.9 L APTT 28.2 Sodium 137 Potassium 4.0 Chloride 106 Carbon Dioxide 25 Anion Gap 6 L BUN 18 Creatinine 0.80 Estim Creat Clear Calc 72 Estimated GFR > 60 Glucose 103 Calcium 7.9 L Post-procedural complaints: none Patient Feedback: Patient satisfied with anesthetic care.
--- NOTE | 2022-05-03 07:16 | PM.DS ---
DS: Admitting Diagnosis Discharge Date 04/27/22 Admitting Diagnosis Prostate cancer DS: Summary Hospital Course Hospital Course: This patient was admitted on the morning of his planned robotic prostatectomy. This procedure was uneventful, as was his postoperative course. By the evening of the procedure he was sitting at the bedside in tolerating a liquid diet. The following morning he was ambulating freely and tolerating regular food. His catheter drainage remained essentially clear throughout. His postoperative hemoglobin and serum creatinine were unremarkable. At the time of discharge he has been instructed in appropriate care for his Gonzalez catheter with both a leg bag and bedside bag. He will be discharged with plans to follow-up in 1 week with a cystogram. Time Spent with Patient Time attestation: Total time spent providing and/or coordinating discharge services: DS: Data Data Completed and Pending Pending studies at discharge: Pending at discharge 04/26/22 09:11 Surgical [PTH] Routine Discharge Plan Discharge Patient Disposition: Home, Self-Care Discharge Instructions: 1) Gonzalez catheter -> leg bag / bedside bag at night. 2) No lifting/straining >15lbs. x3 weeks. 3) No driving x1-week. 4) Resume normal, pre-operative diet. 5) My office will contact regarding follow-up in 1-week with cystogram. Stand Alone Forms: General Discharge Instructions Discharge Medications: New hydrocodone-acetaminophen 5-325 mg tablet 1 - 2 tablet PO Q6H PRN (Reason: pain) Qty: 24 0RF cephalexin 500 mg capsule 500 mg PO Q8H Qty: 9 0RF hyoscyamine sulfate 0.125 mg tablet 0.125 mg PO Q6H PRN (Reason: bladder spasms) Qty: 20 2RF docusate sodium [Colace] 100 mg capsule 100 mg PO DAILY Qty: 30 0RF Continued atorvastatin 40 mg tablet 40 mg PO DAILY multivitamin Tablet 1 tablet PO DAILY diclofenac sodium 75 mg tablet,delayed release (DR/EC) 75 mg PO DAILY atenolol 50 mg Tablet 50 mg PO DAILY Rx Instructions: pt takes 1 1/2 tabs (total of 75mg) once daily omeprazole 20 mg capsule,delayed release(DR/EC) See Rx Instructions .ROUTE .COMPLEX Qty: 90 3RF Dose Instruction: TAKE 1 CAPSULE BY MOUTH DAILY CALL OFFICE TO SCHEDULE YEARLY EXAM PLEASE Rx Instructions: TAKE 1 CAPSULE BY MOUTH DAILY Held omega 8-loj-pty-fish oil [Fish Oil] 1,200 (144-216) mg capsule 1 cap PO BID Hold Instructions: Resume on 05/02/22. Label Comments: TAKES AT HS warfarin 5 mg tablet 5 mg PO DAILY Qty: 1 0RF Hold Instructions: Resume on 04/29/22. Label Comments: TAKES AT HS Discontinued tamsulosin 0.4 mg capsule See Rx Instructions .ROUTE .COMPLEX Qty: 90 3RF Dose Instruction: TAKE 1 CAPSULE BY MOUTH DAILY 1/2 HOUR FOLLOWING THE SAME MEAL EACH DAY Rx Instructions: TAKE 1 CAPSULE BY MOUTH DAILY 1/2 HOUR FOLLOWING THE SAME MEAL EACH DAY
== END 2022-04-27 12:40 | disposition home or self-care (01) ==
LOC: ANHSURGERY 06:30 → ANH3MED 14:59
PROVIDERS: PCP Family Medicine; Visit Provider Urology
PROC: 0VT04ZZ Resection of Prostate, Percutaneous Endoscopic Approach (ICD-10-PCS; CPT 55867; principal; 2022-04-26 07:30)
DX: C61 Malignant neoplasm of prostate (principal); I48.0 Paroxysmal atrial fibrillation; I10 Essential (primary) hypertension; E78.00 Pure hypercholesterolemia, unspecified; K21.9 Gastro-esophageal reflux disease without esophagitis; M51.36 Other intervertebral disc degeneration, lumbar region; I87.8 Other specified disorders of veins; Z79.01 Long term (current) use of anticoagulants; Z87.891 Personal history of nicotine dependence; E66.9 Obesity, unspecified; Z68.37 Body mass index [BMI] 37.0-37.9, adult
CPT/HCPCS: 55866; 38571; S2900; 36415; 80048; 85014; 85018; 85730; 88305; 88309; 88342; A9270; J0131; J0690; J1100; J1170; J2370; J2405; J2704; J2710; J3010; J7030; J7120

== ENCOUNTER 2022-05-04 10:15 | Outpatient (CLI) | payer MEDICARE, SELFPAY ==
--- NOTE | ~2022-05-04 | XR_ITS ---
EXAMINATION: XR cystogram DATE: 05/04/2022 10:57 INDICATION: Prostate cancer TECHNIQUE: Water-soluble contrast was gravity-infused through the patient's Gonzalez catheter. Multiple fluoroscopic images were obtained. Fluoroscopy exposure time was 1.3 minutes. The DAP for this proced ure was 36.682 Gycm2. 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 The bladder is otherwise normal in appearanc e. No contrast extravasation is identified. A small amount of retained contrast material is seen in b ladder diverticula on the postdrainage image. There is mild osteoarthritis of the hips. Severe lumbar spondylosis is noted. IMPRESSION: 1. No evidence of contrast extravasation. Reviewed, dictated and finalized at location A. [employer]
== END 2022-05-04 10:16 | disposition home or self-care (01) ==
PROVIDERS: PCP Physician Assistant; Visit Provider Urology
DX: C61 Malignant neoplasm of prostate (principal)
CPT/HCPCS: 51600; 74430; Q9967

== ENCOUNTER 2022-06-19 11:47 | Outpatient (RCR) | payer MEDICARE, SELFPAY ==
[2022-03-30 10:13] LABS: INR 3.1; Prothrombin Time 30.6 Seconds (11.1-14.7)
[2022-05-09 10:49] LABS: INR 2.4; Prothrombin Time 25.3 Seconds (11.1-14.7)
[2022-06-19 12:40] LABS: INR 2.7; Prothrombin Time 27.9 Seconds (11.1-14.7)
== END 2022-06-28 23:59 | disposition home or self-care (01) ==
LOC: ANHLAB 11:47
PROVIDERS: PCP Family Medicine; Visit Provider Internal Medicine Cardiovascular Disease
DX: Z51.81 Encounter for therapeutic drug level monitoring (principal); I48.0 Paroxysmal atrial fibrillation; Z79.01 Long term (current) use of anticoagulants
CPT/HCPCS: 36415; 85610